=== PATIENT | female | born 1950 | race Caucasian/White ===

== ENCOUNTER → 2016-10-13 | Outpatient (CLI) | payer OTHER | END | disposition home or self-care (01) | LOC: C.PATHSPEC 09:52 | PROVIDERS: ATTEND Family Medicine | DX: L82.1 Other seborrheic keratosis (principal) ==

== ENCOUNTER → 2017-02-15 | Outpatient (CLI) | payer OTHER ==
[2017-02-15 19:09] LABS: RATIO 17.6 mcg/mg (0-30.0)
== END | disposition home or self-care (01) ==
LOC: C.LABMFLN 16:40
PROVIDERS: ATTEND Family Medicine
DX: E11.49 Type 2 diabetes mellitus with other diabetic neurological complication (principal)

== ENCOUNTER → 2017-09-20 | Outpatient (CLI) | payer OTHER ==
[2017-09-20 13:13] LABS: HEMOGLOBIN A1C 7.9 % (4.5-5.6)
[2017-09-20 13:21] LABS: ALBUMIN 3.7 gm/dl (3.4-5.0); ALT/SGPT 32 U/L (12-78); AST/SGOT 20 U/L (15-37); BLOOD UREA NITROGEN 15 mg/dl (7-18); CALCIUM 9.1 mg/dl (8.5-10.1); CARBON DIOXIDE 33 mmol/L (21-32); CREATININE 0.84 mg/dl (0.60-1.20); GLUCOSE 131 mg/dl (70-99); POTASSIUM 4.1 mmol/L (3.5-5.1); SODIUM 136 mmol/L (136-145)
[2017-09-20 13:24] LABS: ALKALINE PHOSPHATASE 87 U/L (45-117); CHOLESTEROL 126 mg/dl (0-200); LDL CHOLESTEROL CALCULATED 54 mg/dl; TOTAL PROTEIN 8.2 gm/dl (6.4-8.2)
== END | disposition home or self-care (01) ==
LOC: C.LABMFLN 08:26
PROVIDERS: ATTEND Family Medicine
DX: E78.00 Pure hypercholesterolemia, unspecified (principal); E11.49 Type 2 diabetes mellitus with other diabetic neurological complication

== ENCOUNTER → 2017-09-27 | Outpatient (CLI) | payer OTHER | END | disposition home or self-care (01) | LOC: C.LABMFLN 11:23 | PROVIDERS: ATTEND Family Medicine | DX: R39.15 Urgency of urination (principal) ==

== ENCOUNTER 2018-07-26 09:56 | Inpatient (IN) ==
--- NOTE | 2018-07-03 12:41 | Anesthesiology Consultation ---
Date of Service July 03, 2018 Assessment & Plan (1) Encounter for pre-operative examination: Chart Review Chart Review: Acceptable Risk for Surgery and Patient NOT seen in Pre Admission Testing Consults Requested none History Surgery Operation Date: 07/26/18 09:20 Proposed Procedures p Left Total Knee Arthroplasty - Dale Lofton MD Height/Weight Height: 5 ft 1 in Weight: 117.934 kg Allergies Allergy/AdvReac Type Severity Reaction Status Date / Time propoxyphene AdvReac Headache Verified 06/13/18 13:15 [From Darhemantt-N] Medications Home Medications Medication Instructions Recorded Confirmed Last Taken atorvastatin 40 mg PO HS 03/30/18 06/13/18 04/25/18 22:00 gabapentin 100 mg PO TID 03/30/18 06/13/18 04/26/18 04:30 glimepiride 4 mg PO QAM 03/30/18 06/13/18 04/26/18 04:30 hydrochlorothiazide 0.5 tab PO QAM 03/30/18 06/13/18 04/25/18 06:00 losartan 100 mg PO QAM 03/30/18 06/13/18 04/25/18 06:00 metformin 1,000 mg PO BID 03/30/18 06/13/18 04/25/18 18:00 metoprolol tartrate 1.5 tab PO BID 03/30/18 06/13/18 04/26/18 04:30 sertraline 100 mg PO BID 03/30/18 06/13/18 04/26/18 04:30 sitagliptin [Januvia] 100 mg PO QAM 03/30/18 06/13/18 04/25/18 06:00 acetaminophen [Acetaminophen Extra 500 mg PO Q6H PRN 06/13/18 06/13/18 Unknown Strength] aspirin [Aspirin Low Dose] 81 mg PO BID 06/13/18 06/13/18 Unknown diphenhydramine HCl 25 mg PO HS PRN 06/13/18 06/13/18 Unknown glimepiride 2 mg PO QDD 06/13/18 06/13/18 Unknown meloxicam 15 mg PO QDL 06/13/18 06/13/18 Unknown Past Medical History Medical History Hypersomnia Hypertension Hyperlipidemia Transient ischemic attack (TIA) 5+ YEARS AGO Depression Temporomandibular joint disorder NO LOCKING History of breast cancer LEFT S/P LUMPECTOMY; S/P RADIATION (~2013) Diabetes mellitus, type 2 NIDDM GERD (gastroesophageal reflux disease) CONTROLLED IBS (irritable bowel syndrome) Osteoarthritis Morbid obesity Tricuspid regurgitation MILD Carotid artery stenosis Environmental allergies Seasonal allergies Past Family History Family History Grandmother Family history of diabetes mellitus Grandmother Family history of diabetes mellitus Mother Uterine cancer Multiple myeloma Sister Family history of diabetes mellitus Father Family history of diabetes mellitus CAD (coronary artery disease), [place] coronary artery Son Family history of diabetes mellitus Past Surgical History Surgical History History of cardiac cath 2001= NO STENTS; Having "discomfort in chest" Seen by Dr Rodriguez who sent her to linux system administrator ([facility]). Who sent her to [facility] for cardiac cath History of colonoscopy History of endometrial biopsy Has had several procedures done History of tonsillectomy History of breast biopsy LEFT History of cholecystectomy History of dilatation and curettage History of ankle surgery LEFT History of carpal tunnel release B/L History of lumpectomy of left breast History of right common carotid artery stent placement Hx of total hysterectomy S/P total knee replacement Right. Done at 04/26/2018 at [facility]. Spinal/block/MAC. no issues. Social History Smoking Status: Never smoker Hx Alcohol Use: No Hx Substance Use: No substance use type: does not use Testing Electrocardiogram Date: 04/07/18 Findings: + NSR @ (68) Sinus rhythm with 1st degree A-V block with Premature atrial complexes Otherwise normal ECG No previous ECGs available Confirmed by OSWALD SHERMAN Chest X-Ray Date: 04/07/18 CLINICAL HISTORY: pat preoperative evaluation COMPARISON STUDY: No previous studies for comparison. FINDINGS: The bones soft tissues and hemidiaphragms are normal. The cardiomediastinal silhouette is normal. The lungs are clear. The pulmonary vasculature is normal. Calcified granuloma left lung base. Moderate degenerative change thoracic spine. IMPRESSION: No acute process. Laboratory Results Blood Type O Negative 06/29/18 10:41 Antibody Screen NEGATIVE 06/29/18 10:41 Laboratory Tests 06/29/18 06/29/18 06/29/18 10:41 10:41 10:41 WBC 7.77 Hgb 12.2 Hct 38.4 Plt Count 185 PT 10.2 INR 1.0 APTT 27.9 Sodium 138 Potassium 4.0 Chloride 101 Carbon Dioxide 31 BUN 23 H Creatinine 0.97 Glucose 121 H Hemoglobin A1c 06/29/18 10:41 WBC Hgb Hct Plt Count PT INR APTT Sodium Potassium Chloride Carbon Dioxide BUN Creatinine Glucose Hemoglobin A1c 6.5 H
--- NOTE | 2018-07-25 12:07 | History and Physical Report ---
DATE OF ADMISSION: 07/26/2018 CHIEF COMPLAINT: Chronic left knee pain and instability. HISTORY OF PRESENT ILLNESS: This is a 67-year-old female patient of Dr. Lofton'jesus manuel complaining of chronic left knee pain, longstanding, now progressively getting worse. The patient has failed conservative treatment including Tylenol, anti-inflammatories and the use of a cane. The patient has increased pain with weightbearing activities and her pain does interfere with her activities of daily living. PAST MEDICAL HISTORY: Heart murmur, hypertension, hypercholesterolemia, snoring, no diagnosis of sleep apnea, anxiety, history of a mini stroke, diabetes, anemia, acid reflux, obesity, breast cancer. SOCIAL HISTORY: Nonsmoker, nondrinker. PAST SURGICAL HISTORY: Lumpectomy, carpal tunnel x2, stent placement in her neck, right total knee replacement, gallbladder, and hysterectomy. REVIEW OF SYSTEMS: The patient complains of chronic left knee pain and instability. Otherwise, denies any shortness of breath, chest pain, nausea, vomiting or any other joint complaints. FAMILY HISTORY: Noncontributory. MEDICATIONS: Metformin 500 mg 3 times daily, Nexium 40 mg daily, losartan daily, hydrochlorothiazide 12.5 mg daily, sertraline 100 mg 1-1/2 tablets daily, metoprolol 25 mg daily, anastrozole 1 mg daily, aspirin 81 mg daily, docusate sodium 2 tablets daily, multivitamin daily. ALLERGIES: INCLUDE DARVOCET. PHYSICAL EXAMINATION: GENERAL: Well-developed, well-nourished, obese female with a BMI of 48. She is alert and oriented x3 and pleasant. HEENT: Normocephalic, atraumatic. Extraocular motions are intact. Pupils are equal, reactive to light. HEART: Regular rate and rhythm. No murmurs appreciated. LUNGS: Clear. ABDOMEN: Soft and nontender. Bowel sounds present. EXTREMITIES: Left knee range of motion of 0-95. She is morbidly obese. She has a mild effusion. She has a neutral alignment with crepitation with range of motion. She has 4/5 strength with pain. Neurologically and neurovascularly, she is intact in her left lower extremity. DIAGNOSES: Left knee end-stage osteoarthritis, history of a heart murmur, hypertension, hypercholesterolemia, snoring with no diagnosis of sleep apnea, anxiety, history of a mini stroke, diabetes mellitus, anemia, acid reflux, obesity and a history of breast cancer. PLAN: The patient was advised of her diagnosis. Indications, risks, benefits, and postop course have all been reviewed. The patient wished to proceed with a left total knee arthroplasty. Necessary consent forms, preoperative testing and clearances will be obtained.
[~2018-07-26 09:56] MED LIST: ACETAMINOPHEN 500 MG TAB PO SCH; BUPIVACAINE 0.5 % 5 MG/1 ML PF 10ML VIAL ONE; BUPIVACAINE/EPINEPHRINE 0.5% MPF 1:200,000 30 ML VIAL ONE; CEFAZOLIN 2000MG 2,000 MG/15 ML SYR IV SCH; CeleBREX 200 MG CAP PO SCH; DEXAMETHASONE SOD INJ 4 MG/ML VIAL ONE; FAMOTIDINE 20 MG TAB PO SCH; GABAPENTIN 300 MG PO SCH; LR 500ML BOLUS, THEN 15ML/HR IV SCH; METOCLOPRAMIDE HCL 10 MG TABLET PO SCH; ROPIVACAINE 0.5% HCL/PF 150 MG, BUPIVACAINE 0.5% MPF 30 ML, EPINEPHrine 30MG/30ML (OR U... INFIL SCH
[2018-07-26] MEDS ORDERED: fentaNYL citrate 100 MCG/2 ML VIAL ONE (11:44)
[2018-07-26] MEDS ORDERED: MIDAZOLAM HCL 1 MG/ML 2ML VIAL ONE (11:44)
[2018-07-26] MEDS ORDERED: LACTATED RINGER'S 1,000 ML IV SCH (13:45)
--- NOTE | 2018-07-26 14:12 | History & Physical Bridge Note ---
Date of Service July 26, 2018 History & Physical Bridge Note I have examined the patient, reviewed the History & Physical and in the interval since the performance of the History & Physical I have noted the following changes of clinical significance: no changes noted
[2018-07-26] MEDS ORDERED: ORTHO JOINT ANESTHETIC ONE (14:21)
[2018-07-26] MEDS ORDERED: BACITRACIN INJ 50,000 UNIT VIAL ONE (14:21)
[2018-07-26] MEDS ORDERED: POVIDONE-IODINE OP SOLN 30 ML BTL ONE (14:21)
[2018-07-26] MEDS ORDERED: KETAMINE HCL INJ 50 MG/ML 10 ML VIAL ONE (14:29)
[2018-07-26] MEDS ORDERED: ATROPINE SULFATE 0.1 MG/ML 10ML SYR IV PRN (14:41)
[2018-07-26] MEDS ORDERED: fentaNYL citrate 100 MCG/2 ML VIAL IV PRN (14:41)
[2018-07-26] MEDS ORDERED: ePHEDrine sulfate 50 MG/ML AMP IV PRN (14:41)
[2018-07-26] MEDS ORDERED: ONDANSETRON INJ 2 MG/ML 2 ML VIAL IV PRN ×2 (14:41→17:51)
[2018-07-26] MEDS ORDERED: LIDOCAINE HCL 2% 2 ML VIAL/AMP(20MG/ML) INFIL ONE (14:49)
[2018-07-26] MEDS ORDERED: ONDANSETRON INJ 2 MG/ML 2 ML VIAL ONE (14:49)
[2018-07-26] MEDS ORDERED: PROPOFOL IV EMULSION 10 MG/ML 20 ML VIAL IV ONE (14:49)
[2018-07-26] MEDS ORDERED: DEXAMETHASONE SOD INJ 4 MG/ML VIAL ONE (14:49)
[2018-07-26] MEDS ORDERED: GLYCOPYRROLATE 0.2 MG/ML VIAL ONE (14:49)
--- NOTE | 2018-07-26 16:16 | Operative Report ---
Post Operative Report Pre & Post Diagnosis Operation Date: 07/26/18 13:30 Pre-Op Diagnosis: LEFT KNEE OSTEOARTHRITIS, morbid obesity BMI 49.5 Post-Op Diagnosis: LEFT KNEE OSTEOARTHRITIS, morbid obesity BMI 49.5 Procedure Operation Date: 07/26/18 13:30 Actual Procedures p Left Total Knee Arthroplasty, increased difficulty due to morbid obesity BMI 49.5, application superficial wound VAC (Left) - Dale Lofton MD Surgeon Dale Lfoton MD Crisis Mental Health Therapist Jesús FARLEY Estimated Blood Loss 5 Findings See Below Obesity of the leg with tricompartmental DJD [id number] patellofemoral and medial compartment varus knee. Specimens Bone cuts Drains 2 Hemovac Anesthesia Type Spinal MAC Complications none Disposition Accompanied Patient To Recovery: No Disposition: Recovery Room Indications 67-year-old female who had bilateral knee osteoarthritis with successful right knee replacement last year. Patient did well with that procedure. I still want to proceed with left knee replacement. She does have comorbidity of morbid obesity diabetes history of TIA Description of Procedure Patient taken to the operating room the size under spinal regional block anesthesia. Patient was placed supine on the operating table. A pneumatic tourniquet was placed about the left obese upper thigh. The left lower extremity was prepped and draped in sterile fashion. Knee exam demonstrated obese knee full distention flexion to 120 degrees no particular instability. The leg was elevated exsanguinated with an Esmarch bandage and pneumatic tourniquet was raised to 350 millimeters of mercury. Skin incised sharply in longitudinal fashion. Subcutaneous flaps elevated. Incision was made through the medial retinaculum extending up in the mid third of the quadriceps tendon and down to the medial tibial tubercle. Intra-articular findings demonstrated tricompartmental degenerative arthritis [id number] medial compartment and patellofemoral joint tricompartmental large osteophytes with a varus knee.. The [employer] triGlossyBoxn total knee arthroplasty system was used. To expose the knee the infrapatellar fat pad was resected. The meniscal remnants and cruciate ligaments were resected. The anterior fat pad over the femur in the area of the anterior flange of the femoral component was resected. Lateral synovial bands release. The femur was exposed. An intramedullary drill hole was made into the canal. A guidewire was placed. Distal femoral cutting guide was adjusted to resect a 5 degree valgus cut with 8 millimeters distal femur resected. The knee was extended and a subperiosteal peel lateral release was performed around the patella. Patella width was measured and width was reproduced using a freehand cut technique and a 31 patella component. The 3 drill holes were made and the excess lateral facet was beveled off to prevent any impingement. Attention was taken back to the femur which was exposed with retractors and the femoral sizing guide was pinned in position. The drill holes were placed in 3 of external rotation to match epicondylar axis. Femur sized for a 4 component. The 4-in-1 cutting block was placed and then the anterior posterior and chamfer cuts are made. The tibia was then subluxed. The external tibial cutting guide was just to make a perpendicular cut to the long axis of the tibia below the most deficient bone loss side. A lamina black top spreader machine operator was used and the flexion extension gaps were balanced. All posterior osteophytes removed. All meniscal remnants were resected. The tibia exposed and the trial tibial component size 3 was externally rotated in line with the tibial tubercle and pinned in position. The punch for stem was used. The notch cutting device was centered appropriately and the femoral notch cut was made. The femoral trial was inserted. Trial tibial inserts were placed and size 9 gave balanced ligaments through flexion and extension. Patella tracking was assessed. The patella tracked with lateral liftoff and tilt so I went ahead and did a formal lateral release leaving the synovium intact and patella tracked centrally. The trial components were then removed and the orthomix anesthetic cocktail was injected per protocol. The knee was then copiously irrigated with pulsatile lavage antibiotic solution. Final components were then cemented with Simplex cement. Final components were [employer] triathlon left size 4 posterior stabilized femur size 3 primary tibial baseplate size 3 x 9 mm posterior stabilized X3 polyethylene tibial insert X3 31 x 9 mm symmetrical patella. While the cement cured the Betadine soak was used per protocol. After cement cured further pulsatile lavage irrigation performed and 2 Hemovac drains were brought out laterally. The quadriceps tendon and medial retinaculum were closed with figure of 8 #1 Vicryl sutures. The knee was taken through full range of motion and the repair was secure. The subcutaneous tisssues were closed with large #2 Vicryl sutures to close the deep fat, 2-0 Vicryl sutures for more superficial fat. Skin was closed with debora. A superficial wound VAC was then applied. Jesús FARLEY was my physician family medicine physician assistant who assisted in patient positioning prepping and draping,leg positioning ,soft tissue retraction and instrument management and participated in the closing applied the superficial wound VAC and will participate in postoperative care of the patient. The patient tolerated the procedure well. I attest to the content of the Intraoperative Record and any orders documented therein. Any exceptions are noted below.
--- NOTE | 2018-07-26 17:17 | XRay Report ---
TWO VIEWS LEFT KNEE CLINICAL HISTORY: Postoperative examination. FINDINGS: AP and crosstable lateral portable views of the left knee are obtained. A left knee arthrop lasty is in near anatomic alignment. There has been undersurface remodeling of the patella. No acute fracture is seen. There are expected postoperative changes around the knee including skin clips, a larsen rgical drain, soft tissue edema, and subcutaneous gas. IMPRESSION: Expected postoperative changes status post left knee arthroplasty. No acute fracture is s een. Electronically signed by: Wili Rivas M.D. 07/26/2018 5:16 PM
[2018-07-26] MEDS ORDERED: MAGNESIUM HYDROXIDE SUSP 30 ML UDC PO PRN (17:51)
[2018-07-26] MEDS ORDERED: NALOXONE HCL 0.4 MG/1 ML VIAL/CARP IV PRN (17:51)
[2018-07-26] MEDS ORDERED: HYDROmorphone INJ 0.5 MG/0.5 ML SYR IV PRN (17:51)
[2018-07-26] MEDS ORDERED: METOCLOPRAMIDE HCL INJ 5 MG/ML 2 ML VIAL IV PRN (17:51)
[2018-07-26] MEDS ORDERED: BISACODYL 10 MG SUPP PR PRN (17:51)
--- NOTE | 2018-07-26 18:39 | Anesthesiology Progress Note ---
Date of Service July 26, 2018 Anesthesia Post Procedure Vital Signs Vital Signs: Temp Pulse Pulse Pulse Resp BP Pulse Ox 07/26/18 17:45 36.6 C 76 12 113/66 07/26/18 17:30 37.4 C 73 20 116/59 L 94 07/26/18 17:15 74 18 111/63 93 07/26/18 17:05 72 20 111/55 L 94 07/26/18 16:55 73 20 106/56 L 97 07/26/18 16:47 38.0 C H 77 16 105/60 98 07/26/18 10:35 36.4 C L 63 20 149/92 H 95 Notes Mental Status: alert / awake / arousable and participated in evaluation Patient Amnestic to Procedure: Yes Nausea / Vomiting: adequately controlled Pain: adequately controlled Airway Patency, RR, SpO2: stable & adequate BP & HR: stable & adequate Hydration State: stable & adequate Neuraxial Anesthesia: was administered and sensory block is resolving Anesthetic Complications: no major complications apparent
[2018-07-26] MEDS ORDERED: GLUCAGON FOR INJ 1 MG VIAL SQ PRN (20:00)
[2018-07-26] MEDS ORDERED: CARBOHYDRATES FOR HYPOGLYCEMIA PO PRN (20:00)
[2018-07-26] MEDS ORDERED: DEXTROSE 50% 50 ML SYRINGE IV PRN (20:00)
[2018-07-26] MEDS ORDERED: GLUCOSE 10 TABS/TUBE PO PRN (20:00)
[2018-07-26] MEDS ORDERED: GLUCOSE 40% GEL 15 GM TUBE PO PRN (20:00)
[2018-07-26] MEDS: DOCUSATE SODIUM 100 MG CAP PO SCH (21:08)
[2018-07-26] MEDS: SERTRALINE HCL 100 MG TABLET PO SCH (21:08)
[2018-07-26] MEDS: FERROUS GLUCONATE 324 MG TAB PO SCH (21:09)
[2018-07-26] MEDS: ATORVASTATIN 40 MG TAB PO SCH (21:09)
[2018-07-26] MEDS: CEFAZOLIN 2000MG 2,000 MG/15 ML SYR IV SCH (21:09)
[2018-07-26] MEDS: ACETAMINOPHEN 500 MG TAB PO SCH (21:09)
[2018-07-26] MEDS: ASPIRIN 81 MG ECTAB PO SCH (21:09)
[2018-07-26] MEDS: GABAPENTIN 100 MG CAP PO SCH (21:09)
[2018-07-26] MEDS: SENNA 8.6 MG TAB PO SCH (21:09)
[2018-07-26] MEDS: METOPROLOL TARTRATE 25 MG TAB PO SCH (21:11)
[2018-07-26] MEDS: INSULIN ASPART 100 UNITS/ML 3 ML PEN SC SCH (21:46)
[2018-07-27] MEDS: SODIUM CHLORIDE 0.9% 1000ML 1,000 ML IV SCH ×2 (00:24→06:21)
[2018-07-27] MEDS: CEFAZOLIN 2000MG 2,000 MG/15 ML SYR IV SCH (06:20)
[2018-07-27] MEDS: ACETAMINOPHEN 500 MG TAB PO SCH ×3 (06:20→21:46)
[2018-07-27 07:39] LABS: Hematocrit (blood only) 30.5 % (37-47); Hemoglobin 9.5 g/dL (12.0-16.0); Mean Corpuscular Hgb Conc 31.1 g/dL (32-36); Mean Corpuscular Volume 82.2 fL (80-100); Mean Platelet Volume 9.7 fL (7.4-10.4); Platelet Count 141 K/uL (130-400); Red Blood Count 3.71 M/uL (4.2-5.4); White Blood Count 10.27 K/uL (4.8-10.8)
[2018-07-27] MEDS ORDERED: METFORMIN HCL 500 MG TAB PO SCH (08:00)
[2018-07-27] MEDS ORDERED: GLIMEPIRIDE 2 MG TAB PO SCH (08:00)
[2018-07-27 08:13] LABS: BUN Creatinine Ratio 20.9 (10-20); Calcium 8.2 mg/dl (8.5-10.1); Creatinine Clr Calc Pharmacy 65.4 ml/min; Est GFR (African American) 67.9; Est GFR (Non-African American) 58.6; Potassium 4.3 mmol/L (3.5-5.1)
[2018-07-27] MEDS: GLIMEPIRIDE 2 MG TAB PO SCH (08:32)
[2018-07-27] MEDS: INSULIN ASPART 100 UNITS/ML 3 ML PEN SC SCH ×4 (08:34→21:16)
[2018-07-27] MEDS: DOCUSATE SODIUM 100 MG CAP PO SCH ×2 (08:36→21:43)
[2018-07-27] MEDS: ASPIRIN 81 MG ECTAB PO SCH ×2 (08:36→21:45)
[2018-07-27] MEDS: FERROUS GLUCONATE 324 MG TAB PO SCH ×2 (08:36→18:00)
[2018-07-27] MEDS: SITAGLIPTIN PHOSPHATE 100 MG TAB PO SCH (08:36)
--- NOTE | 2018-07-27 08:36 | Orthopedic Progress Note ---
Date of Service July 27, 2018 Assessment & Plan (1) Left knee DJD: Begin PT and OT protocols. Weightbearing as tolerated. Continue DVT prophylaxis with aspirin twice daily, ROHINI herrera, DELIAs. Pain management as written. DC planning-patient is planning on going to [facility] if approved Subjective Patient is postop day 1 status post left total knee arthroplasty. She is currently sitting up in her chair reading a book. She has no complaints this morning. Pain is controlled. She denies shortness of breath, chest pain, lightheadedness. Physical Exam Vital Signs (Past 24 Hours): Last Vital Signs Temp 36.5 C 07/27/18 07:02 Pulse 58 L 07/27/18 07:02 Resp 17 07/27/18 07:02 BP 94/61 L 07/27/18 07:02 Pulse Ox 99 07/27/18 07:02 Physical Exam: Dressings are clean dry and intact.Prevena reservoir is empty. Calves are soft and nontender. Neurovascular is intact. Toes are mobile. Results & Data Laboratory Results 07/27/18 07/27/18 07/26/18 Range/Units 07:18 07:18 16:53 WBC 10.27 (4.8-10.8) K/uL RBC 3.71 L (4.2-5.4) M/uL Hgb 9.5 L (12.0-16.0) g/dL Hct 30.5 L (37-47) % MCV 82.2 (80-100) fL MCH 25.6 (25-34) pg MCHC 31.1 L (32-36) g/dL RDW Std Deviation 45.0 (36.4-46.3) fL RDW Coeff of Hunter 15.0 H (11.5-14.5) % Plt Count 141 (130-400) K/uL MPV 9.7 (7.4-10.4) fL Sodium 137 (136-145) mmol/L Potassium 4.3 (3.5-5.1) mmol/L Chloride 102 (98-107) mmol/L Carbon Dioxide 28 (21-32) mmol/L Anion Gap 7.0 (3-11) BUN 21 H (7-18) mg/dl Creatinine 0.99 (0.6-1.2) mg/dl Est Cr Clr Drug Dosing 65.4 ml/min Est GFR ( Amer) 67.9 Est GFR (Non-Af Amer) 58.6 BUN/Creatinine Ratio 20.9 H (10-20) Glucose 179 H (70-99) mg/dl POC Glucose 143 H (70-99) Calcium 8.2 L (8.5-10.1) mg/dl 07/26/18 Range/Units 10:22 WBC (4.8-10.8) K/uL RBC (4.2-5.4) M/uL Hgb (12.0-16.0) g/dL Hct (37-47) % MCV (80-100) fL MCH (25-34) pg MCHC (32-36) g/dL RDW Std Deviation (36.4-46.3) fL RDW Coeff of Hunter (11.5-14.5) % Plt Count (130-400) K/uL MPV (7.4-10.4) fL Sodium (136-145) mmol/L Potassium (3.5-5.1) mmol/L Chloride (98-107) mmol/L Carbon Dioxide (21-32) mmol/L Anion Gap (3-11) BUN (7-18) mg/dl Creatinine (0.6-1.2) mg/dl Est Cr Clr Drug Dosing ml/min Est GFR ( Amer) Est GFR (Non-Af Amer) BUN/Creatinine Ratio (10-20) Glucose (70-99) mg/dl POC Glucose 153 H (70-99) Calcium (8.5-10.1) mg/dl
[2018-07-27] MEDS: MULTIVITAMIN TAB PO SCH (08:37)
[2018-07-27] MEDS: GABAPENTIN 100 MG CAP PO SCH ×3 (08:37→21:44)
[2018-07-27] MEDS: METOPROLOL TARTRATE 25 MG TAB PO SCH ×2 (08:41→21:46)
[2018-07-27] MEDS: LOSARTAN POTASSIUM 50 MG TAB PO SCH (08:41)
--- NOTE | 2018-07-27 09:31 | Anesthesiology Progress Note ---
Date of Service July 27, 2018 Anesthesia Post Procedure Vital Signs Vital Signs: Temp Pulse Pulse Pulse Pulse Pulse Resp 07/27/18 08:40 65 07/27/18 07:02 36.5 C 58 L 17 07/27/18 04:20 36.4 C L 61 16 07/26/18 22:50 36.6 C 84 16 07/26/18 20:58 84 07/26/18 20:45 36.6 C 82 20 07/26/18 19:45 36.6 C 83 20 07/26/18 18:45 75 20 07/26/18 18:32 36.9 C 84 20 07/26/18 17:45 36.6 C 76 12 07/26/18 17:30 37.4 C 73 20 07/26/18 17:15 74 18 07/26/18 17:05 72 20 07/26/18 16:55 73 20 07/26/18 16:47 38.0 C H 77 16 07/26/18 10:35 36.4 C L 63 20 BP BP BP Pulse Ox 07/27/18 08:40 117/75 07/27/18 07:02 94/61 L 99 07/27/18 04:20 104/61 99 07/26/18 22:50 96/55 L 95 07/26/18 20:58 96/57 L 07/26/18 20:45 96/57 L 97 07/26/18 19:45 99/63 L 96 07/26/18 18:45 104/70 96 07/26/18 18:32 116/73 97 07/26/18 17:45 113/66 07/26/18 17:30 116/59 L 94 07/26/18 17:15 111/63 93 07/26/18 17:05 111/55 L 94 07/26/18 16:55 106/56 L 97 07/26/18 16:47 105/60 98 07/26/18 10:35 149/92 H 95 Pain Intensity Left Knee: Pain Intensity: 5 Notes Mental Status: alert / awake / arousable and participated in evaluation Patient Amnestic to Procedure: Yes Nausea / Vomiting: adequately controlled Pain: adequately controlled Airway Patency, RR, SpO2: stable & adequate Hydration State: stable & adequate Neuraxial Anesthesia: was administered and sensory block is resolving Anesthetic Complications: no major complications apparent and Pt Satisfied with anesthetic care
--- NOTE | 2018-07-27 10:39 | Family Medicine Consultation ---
Date of Consultation July 27, 2018 Assessment & Plan (1) Status post total knee replacement, left: post op day #1 PT/OT protocols. Weightbearing as tolerated. DC planning-referral placed to [facility] (formerly [facility]) (2) Left knee DJD: treated with left total knee arthoplasty on 07/26/2018 (3) Diabetes mellitus, type 2: Review of previous records A1C 6.5 on 06/29/2018 within goal. This morning glucose 179 in post-op setting day #1 Continue with Januvia 100mg PO Continue with Glimepiride 2mg PO Hold home med Metformin 1,000mg BID Continue with Novolog -Goal Range 100-150 -Correcton factor 30 -Insulin Carb ratio 1:10 (4) Depression: continue with Zoloft 200mg PO daily (5) Hyperlipidemia: Continue with Lipitor 40mg BID (6) DVT prophylaxis: DVT prophylaxis SCDs, ASA 81mg BID Supervising Physician Co-Signing Physician Notes I have seen and examined the patient independantly from the resident. I discussed the plan of care with the resident and agree with the following summary/exceptions: 67yo F w/ hx of DM who presents as medical consult after left TKA on 07/[address] Lofton. Today, she is in good spirits. No pain in the knee. Reports no fevers/chills, chest pain, shortness of breath, abdominal pain, nausea, or vomiting. 1) S/p left TKA - Post-operative management per primary team 2) DM2 - Continue home Januvia and glimepiride; hold metformin. Sliding scale insulin. 3) Depression - Continue home Zoloft History of Present Illness Reason for Consultation: Medical management Requesting Physician: Dale Lofton MD Attending Physician: Dale Lofton MD History of Present Illness Veena Avendano is a 67 year old female with a history of heart murmur, HTN, hyperlipidemia, TIA, DM2, anemia, that presented for left total knee arthroplasty secondary to DJD. She is post-op day #1. No complications noted during procedure. She has no chest pain, shortness of breath, nausea, vomiting, diarrhea. She reports that she plans to go to [facility] for rehab upon discharge. Allergies Allergy/AdvReac Type Severity Reaction Status Date / Time propoxyphene AdvReac Intermediate Headache Verified 07/26/18 10:35 [From [facility]] Home Medications Home Medications Medication Instructions Recorded Confirmed Type Januvia 100 mg PO QAM 03/30/18 07/26/18 History atorvastatin 40 mg PO HS 03/30/18 07/26/18 History gabapentin 100 mg PO TID 03/30/18 07/26/18 History hydrochlorothiazide 0.5 tab PO QAM 03/30/18 07/26/18 History losartan 100 mg PO QAM 03/30/18 07/26/18 History metformin 1,000 mg PO BID 03/30/18 07/26/18 History metoprolol tartrate 1.5 tab PO BID 03/30/18 07/26/18 History sertraline 200 mg PO HS 03/30/18 07/26/18 History acetaminophen [Acetaminophen Extra 500 mg PO Q6H PRN 06/13/18 07/26/18 History Strength] aspirin [Aspirin Low Dose] 81 mg PO BID 06/13/18 07/26/18 History diphenhydramine HCl 25 mg PO HS PRN 06/13/18 07/26/18 History glimepiride 2 mg PO BID 06/13/18 07/26/18 History meloxicam 15 mg PO QDL 06/13/18 07/26/18 History acetaminophen [Pain Reliever] 1,000 mg PO Q8 14 Days #84 tab 07/27/18 Rx aspirin [Ecotrin Low Strength] 81 mg PO BID 30 Days #60 tab 07/27/18 Rx cefadroxil 500 mg PO BID #14 cap 07/27/18 Rx docusate sodium 100 mg PO BID #20 cap 07/27/18 Rx oxycodone 5 mg PO Q4H PRN #30 tab 07/27/18 Rx Patient History Family History Grandmother Family history of diabetes mellitus Grandmother Family history of diabetes mellitus Mother Uterine cancer Multiple myeloma Sister Family history of diabetes mellitus Father Family history of diabetes mellitus CAD (coronary artery disease), [place] coronary artery Son Family history of diabetes mellitus Social History Communication Ability: Effective Beliefs That Will Affect Care: None marital status: Current Living Situation: Family current occupational status: retired current occupation: Worked as a senior pharmacy technician at an [employer] Other Information That Helps Us Care for You: No Feels Safe at Home: Yes Safety Concerns: Feels Safe At This Time Smoking Status: Never smoker Hx Alcohol Use: No Hx Substance Use: No Physical Exam Vital Signs (Past 24 Hours): Last Vital Signs Temp 36.5 C 07/27/18 07:02 Pulse 65 07/27/18 08:40 Resp 17 07/27/18 07:02 BP 117/75 07/27/18 08:40 Pulse Ox 99 07/27/18 07:02 Constitutional: WD/WN, vitals as above + obese and cooperative Eyes: + anicteric sclerae and EOM intact bilaterally Neck: normal visual inspection and trachea midline Respiratory: normal respiratory effort, lungs clear to auscultation Cardiovascular: Rate/Rhythm: regular rate and regular rhythm Musculoskeletal: old midline surgical scar to right knee consistent with previous total knee arthoplasty. Left knee with bandage in place. No sensory or motor loss in left foot. Left food vascular intact. Skin: no rashes, warm and dry Neurologic: moves all extremities and awake Psychiatric: A+Ox3, euthymic affect Results & Data Laboratory Results Laboratory Results - last 24 hr 07/26/18 07/27/18 07/27/18 16:53 07:18 07:18 WBC 10.27 RBC 3.71 L Hgb 9.5 L Hct 30.5 L MCV 82.2 MCH 25.6 MCHC 31.1 L RDW Std Deviation 45.0 RDW Coeff of Hunter 15.0 H Plt Count 141 MPV 9.7 Sodium 137 Potassium 4.3 Chloride 102 Carbon Dioxide 28 Anion Gap 7.0 BUN 21 H Creatinine 0.99 Est Cr Clr Drug Dosing 65.4 Est GFR ( Amer) 67.9 Est GFR (Non-Af Amer) 58.6 BUN/Creatinine Ratio 20.9 H Glucose 179 H POC Glucose 143 H Calcium 8.2 L 07/27/18 07/27/18 08:29 11:58 WBC RBC Hgb Hct MCV MCH MCHC RDW Std Deviation RDW Coeff of Hunter Plt Count MPV Sodium Potassium Chloride Carbon Dioxide Anion Gap BUN Creatinine Est Cr Clr Drug Dosing Est GFR ( Amer) Est GFR (Non-Af Amer) BUN/Creatinine Ratio Glucose POC Glucose 187 H 170 H Calcium (1) Diabetes mellitus, type 2 Diabetes mellitus complication status: without complication Diabetes mellitus fpc insulin use: without intermodal customer service use Qualified Code(s): E11.9 - Type 2 diabetes mellitus without complications (2) Depression Active/Remission status: in full remission Depression Type: major depressive disorder Major depression recurrence: unspecified whether recurrent Qualified Code(s): F32.5 - Major depressive disorder, single episode, in full remission (3) Hyperlipidemia Hyperlipidemia type: unspecified Qualified Code(s): E78.5 - Hyperlipidemia, unspecified
[2018-07-27] MEDS: OXYCODONE HCL IR 5 MG TAB (IMMEDIATE RELEASE) PO PRN ×2 (12:03→16:50)
[2018-07-27] MEDS: ATORVASTATIN 40 MG TAB PO SCH (21:43)
[2018-07-27] MEDS: SERTRALINE HCL 100 MG TABLET PO SCH (21:43)
[2018-07-27] MEDS: SENNA 8.6 MG TAB PO SCH (21:45)
[2018-07-28] MEDS: ACETAMINOPHEN 500 MG TAB PO SCH ×2 (05:47→13:48)
[2018-07-28] MEDS: METOPROLOL TARTRATE 25 MG TAB PO SCH (08:32)
[2018-07-28] MEDS: FERROUS GLUCONATE 324 MG TAB PO SCH (08:32)
[2018-07-28] MEDS: GLIMEPIRIDE 2 MG TAB PO SCH (08:32)
[2018-07-28] MEDS: MULTIVITAMIN TAB PO SCH (08:33)
[2018-07-28] MEDS: ASPIRIN 81 MG ECTAB PO SCH (08:33)
[2018-07-28] MEDS: LOSARTAN POTASSIUM 50 MG TAB PO SCH (08:33)
[2018-07-28] MEDS: SITAGLIPTIN PHOSPHATE 100 MG TAB PO SCH (08:33)
[2018-07-28] MEDS: GABAPENTIN 100 MG CAP PO SCH ×2 (08:33→14:46)
[2018-07-28] MEDS: DOCUSATE SODIUM 100 MG CAP PO SCH (08:34)
[2018-07-28] MEDS: INSULIN ASPART 100 UNITS/ML 3 ML PEN SC SCH ×2 (08:35→13:47)
[2018-07-28] MEDS ORDERED: KETOROLAC TROMETHAMINE 15 MG/ML VIAL IV STA (09:39)
[2018-07-28 09:43] LABS: Hematocrit (blood only) 31.1 % (37-47); Hemoglobin 9.7 g/dL (12.0-16.0); Mean Corpuscular Hgb Conc 31.2 g/dL (32-36); Mean Corpuscular Volume 82.5 fL (80-100); Mean Platelet Volume 9.9 fL (7.4-10.4); Platelet Count 137 K/uL (130-400); RDW Coefficient of Variation 15.4 % (11.5-14.5); Red Blood Count 3.77 M/uL (4.2-5.4); White Blood Count 7.07 K/uL (4.8-10.8)
[2018-07-28 10:14] LABS: BUN Creatinine Ratio 25.1 (10-20); Calcium 8.7 mg/dl (8.5-10.1); Creatinine Clr Calc Pharmacy 61.1 ml/min; Est GFR (African American) 62.5; Est GFR (Non-African American) 53.9
--- NOTE | 2018-07-28 10:32 | Progress Note ---
DATE: 07/28/2018 SUBJECTIVE: The patient is postop day 2 status post left total knee arthroplasty. She currently is not feeling well due to pain control issues. She revealed to me that she was not taking her oral narcotic medication regularly. She states that she does not normally like to take medications and we discussed that she was going to have to start taking her pain pills regularly due to the type of surgery she has had. We discussed that acetaminophen alone was not going to probably help her pain control and that she would need to take her oxycodone regularly every 4-6 hours to help control her pain. The patient understood and agrees to start taking her pain medications regularly. She denies any shortness of breath, chest pain, or lightheadedness and she has no other complaints at this time. OBJECTIVE: Prevena dressing is clean, dry and intact and has no overt drainage noted. Calves were soft, nontender. Neurovascularly intact. Toes were mobile. There was no erythema or overt swelling noted. ASSESSMENT: Postop day 2 status post right total knee arthroplasty. Continue PT and OT protocols. Continue DVT prophylaxis with b.i.d. aspirin, SCDs and ROHINI hose. Continue current pain medications as they are; however, the patient agrees to start taking her oxycodone regularly and this will be discussed with nursing as well to make sure she is maintaining adequate pain control. One-time dose of Toradol will be added to help alleviate some of the discomfort she is having. If pain is not controlled with her taking the oxycodone regularly, consider adding MS Contin b.i.d. Discharge planning: Currently, the plans are for [facility] rehab facility if authorized. Of note, hemoglobin is remaining stable at 9.7. Current temperatures are pending, but yesterday's creatinine was 0.99. MTDD
--- NOTE | 2018-07-28 10:46 | Family Medicine Progress Note ---
Date of Service July 28, 2018 Assessment & Plan (1) Status post total knee replacement, left: post op day #2 Continue with PT/OT protocols. DC planning-referral placed to [facility] (formerly [facility]) Hgb is stable this morning at 9.7 and improved from yesterday's value of 9.5. Patient is doing well without any concerns from medical management stand point. We will sign off on care. Happy to provide further medical management as requested. Thank you for allowing us to assist in the care of Veena. (2) Left knee DJD: treated with left total knee arthoplasty on 07/26/2018 (3) Diabetes mellitus, type 2: Review of previous records A1C 6.5 on 06/29/2018 within goal. This morning glucose 172, but was at 9am after breakfast, POC glucose within the past 12 hours have been in goal range. Noted that 11 total units of Novolog were required yesterday per protocol. Continue with Januvia 100mg PO Continue with Glimepiride 2mg PO Hold home med Metformin 1,000mg BID Continue with Novolog -Goal Range 100-150 -Correcton factor 30 -Insulin Carb ratio 1:10 She can continue with outpatient diabetic regimen on discharge as previous A1C was at goal. (4) Depression: continue with Zoloft 200mg PO daily (5) Hyperlipidemia: Continue with Lipitor 40mg BID (6) DVT prophylaxis: DVT prophylaxis SCDs, ASA 81mg BID Supervising Physician Co-Signing Physician Notes I have seen and examined the patient independently from the resident. I discussed the plan of care with the resident and agree with the following summary/exceptions: 67yo F w/ hx of DM who presents as medical consult after left TKA on 07/[address] Lofton. Today, she is in good spirits. Some knee pain, but had not been taking her PRN pain meds. Reports no fevers/chills, chest pain, shortness of breath, abdominal pain, nausea, or vomiting. May go home today. 1) S/p left TKA - Post-operative management per primary team 2) DM2 - Continue home Januvia and glimepiride; hold metformin. Sliding scale insulin. Sugars in good range. 3) Depression - Continue home Zoloft Subjective Veena reports no acute events overnight. She has no chest pain, shortness of breath, nausea, vomiting, diarrhea, fever or chills. She is working with Physical Therapy. Physical Exam Vital Signs (Past 24 Hours): Last Vital Signs Temp 36.4 C L 07/28/18 07:57 Pulse 67 07/28/18 07:57 Resp 18 07/28/18 07:57 BP 113/69 07/28/18 07:57 Pulse Ox 92 07/28/18 07:57 Constitutional: WD/WN, vitals as above + obese and cooperative Eyes: + anicteric sclerae and EOM intact bilaterally Neck: normal visual inspection and trachea midline Respiratory: normal respiratory effort, lungs clear to auscultation Cardiovascular: Rate/Rhythm: regular rate and regular rhythm Musculoskeletal: LLE neuro-vascular intact, no sensory deficit or motor deficit in left foot. Left knee bandage with drain in place, intact, dry. Skin: no rashes, warm and dry Neurologic: moves all extremities and awake Psychiatric: A+Ox3, euthymic affect Results & Data Laboratory Results Laboratory Results - last 24 hr 07/27/18 07/27/18 07/27/18 11:58 17:14 20:38 WBC RBC Hgb Hct MCV MCH MCHC RDW Std Deviation RDW Coeff of Hunter Plt Count MPV Sodium Potassium Chloride Carbon Dioxide Anion Gap BUN Creatinine Est Cr Clr Drug Dosing Est GFR ( Amer) Est GFR (Non-Af Amer) BUN/Creatinine Ratio Glucose POC Glucose 170 H 104 H 114 H Calcium 07/28/18 07/28/18 07/28/18 08:00 09:33 09:33 WBC 7.07 RBC 3.77 L Hgb 9.7 L Hct 31.1 L MCV 82.5 MCH 25.7 MCHC 31.2 L RDW Std Deviation 46.0 RDW Coeff of Hunter 15.4 H Plt Count 137 MPV 9.9 Sodium 136 Potassium 4.0 Chloride 100 Carbon Dioxide 30 Anion Gap 7.0 BUN 27 H Creatinine 1.06 Est Cr Clr Drug Dosing 61.1 Est GFR ( Amer) 62.5 Est GFR (Non-Af Amer) 53.9 BUN/Creatinine Ratio 25.1 H Glucose 172 H POC Glucose 122 H Calcium 8.7 Medications Administered Acetaminophen (Tylenol) 1,000 mg PO Q8 [facility] Stop: 08/25/18 21:59 Last Admin: 07/28/18 05:47 Dose: 1,000 mg Documented by: [id number] Admin: 07/27/18 21:46 Dose: 1,000 mg Documented by: [id number] Admin: 07/27/18 13:36 Dose: 1,000 mg Documented by: [id number] Admin: 07/27/18 06:20 Dose: 1,000 mg Documented by: [id number] Admin: 07/26/18 21:09 Dose: 1,000 mg Documented by: [id number] Aspirin (Ecotrin Ectab) 81 mg PO BID [facility] Stop: 08/25/18 20:59 Last Admin: 07/28/18 08:33 Dose: 81 mg Documented by: [id number] Admin: 07/27/18 21:45 Dose: 81 mg Documented by: [id number] Admin: 07/27/18 08:36 Dose: 81 mg Documented by: [id number] Admin: 07/26/18 21:09 Dose: 81 mg Documented by: [id number] Atorvastatin Calcium (Lipitor) 40 mg PO HS [facility] Stop: 08/25/18 20:59 Last Admin: 07/27/18 21:43 Dose: 40 mg Documented by: [id number] Admin: 07/26/18 21:09 Dose: 40 mg Documented by: [id number] Docusate Sodium (Colace) 100 mg PO BID [facility] Stop: 08/25/18 20:59 Last Admin: 07/28/18 08:34 Dose: 100 mg Documented by: [id number] Admin: 07/27/18 21:43 Dose: 100 mg Documented by: [id number] Admin: 07/27/18 08:36 Dose: 100 mg Documented by: [id number] Admin: 07/26/18 21:08 Dose: 100 mg Documented by: [id number] Ferrous Gluconate (Ferrous Gluconate) 324 mg PO BIDM [facility] Stop: 08/25/18 18:29 Last Admin: 07/28/18 08:32 Dose: 324 mg Documented by: [id number] Admin: 07/27/18 18:00 Dose: 324 mg Documented by: [id number] Admin: 07/27/18 08:36 Dose: 324 mg Documented by: [id number] Admin: 07/26/18 21:09 Dose: 324 mg Documented by: [id number] Gabapentin (Neurontin) 100 mg PO TID [facility] Stop: 08/25/18 20:59 Last Admin: 07/28/18 08:33 Dose: 100 mg Documented by: [id number] Admin: 07/27/18 21:44 Dose: 100 mg Documented by: [id number] Admin: 07/27/18 13:36 Dose: 100 mg Documented by: [id number] Admin: 07/27/18 08:37 Dose: 100 mg Documented by: [id number] Admin: 07/26/18 21:09 Dose: 100 mg Documented by: [id number] Glimepiride (Amaryl) 2 mg PO QDB [facility] Stop: 08/26/18 07:29 Last Admin: 07/28/18 08:32 Dose: 2 mg Documented by: [id number] Admin: 07/27/18 08:32 Dose: 2 mg Documented by: [id number] Hydromorphone HCl (Dilaudid) 0.5 mg IV Q4H PRN PRN Reason: Pain Stop: 08/09/18 17:50 Last Admin: 07/27/18 19:48 Dose: 0.5 mg Documented by: [id number] Insulin Aspart (Novolog Flexpen) 0 units SC ACHS [facility] Stop: 08/25/18 20:59 Last Admin: 07/28/18 08:35 Dose: 5 units Documented by: [id number] Cosigned by: [id number] Admin: 07/27/18 21:16 Dose: Not Given Documented by: [id number] Cosigned by: [id number] Admin: 07/27/18 18:08 Dose: 2 units Documented by: [id number] Cosigned by: [id number] Admin: 07/27/18 13:31 Dose: 5 units Documented by: [id number] Cosigned by: [id number] Admin: 07/27/18 08:34 Dose: 4 units Documented by: [id number] Cosigned by: [id number] Admin: 07/26/18 21:46 Dose: Not Given Documented by: [id number] Cosigned by: [id number] Losartan Potassium (Cozaar) 100 mg PO QAM [facility] Stop: 08/26/18 08:59 Last Admin: 07/28/18 08:33 Dose: 100 mg Documented by: [id number] Admin: 07/27/18 08:41 Dose: 100 mg Documented by: [id number] Metoprolol Tartrate (Lopressor) 75 mg PO BID [facility] Stop: 08/25/18 20:59 Last Admin: 07/28/18 08:32 Dose: 75 mg Documented by: [id number] Admin: 07/27/18 21:46 Dose: Not Given Documented by: [id number] Admin: 07/27/18 08:41 Dose: 75 mg Documented by: [id number] Admin: 07/26/18 21:11 Dose: Not Given Documented by: [id number] Multivitamins (Multivitamin Tab) 1 tab PO [facility] Stop: 08/26/18 08:59 Last Admin: 07/28/18 08:33 Dose: 1 tab Documented by: [id number] Admin: 07/27/18 08:37 Dose: 1 tab Documented by: [id number] Oxycodone HCl (Roxicodone Immediate Rel) 5 - 10 mg PO Q4H PRN PRN Reason: Pain Stop: 08/09/18 17:50 Last Admin: 07/27/18 16:50 Dose: 10 mg Documented by: [id number] Admin: 07/27/18 12:03 Dose: 5 mg Documented by: [id number] Sennosides (Senokot) 17.2 mg PO [facility] Stop: 08/25/18 20:59 Last Admin: 07/27/18 21:45 Dose: 17.2 mg Documented by: [id number] Admin: 07/26/18 21:09 Dose: 17.2 mg Documented by: [id number] Sertraline HCl (Zoloft) 200 mg PO [facility] Stop: 08/25/18 20:59 Last Admin: 07/27/18 21:43 Dose: 200 mg Documented by: [id number] Admin: 07/26/18 21:08 Dose: 200 mg Documented by: [id number] Sitagliptin Phosphate (Januvia) 100 mg PO [facility] Stop: 08/26/18 08:59 Last Admin: 07/28/18 08:33 Dose: 100 mg Documented by: [id number] Admin: 07/27/18 08:36 Dose: 100 mg Documented by: [id number] (1) Diabetes mellitus, type 2 Diabetes mellitus complication status: without complication Diabetes mellitus mcc insulin use: without mcc use Qualified Code(s): E11.9 - Type 2 diabetes mellitus without complications (2) Depression Active/Remission status: in full remission Depression Type: major depressive disorder Major depression recurrence: unspecified whether recurrent Qualified Code(s): F32.5 - Major depressive disorder, single episode, in full remission (3) Hyperlipidemia Hyperlipidemia type: unspecified Qualified Code(s): E78.5 - Hyperlipidemia, unspecified
[2018-07-28] MEDS: OXYCODONE HCL IR 5 MG TAB (IMMEDIATE RELEASE) PO PRN (12:41)
--- NOTE | 2018-07-29 11:59 | Discharge Summary ---
Date of Service August 04, 2018 Admission HPI Per Admitting Provider This is a 67-year-old female patient of Dr. Lofton's complaining of chronic left knee pain, longstanding, now progressively getting worse. The patient has failed conservative treatment including Tylenol, anti-inflammatories and the use of a cane. The patient has increased pain with weightbearing activities and her pain does interfere with her activities of daily living. Discharge Data Consultations 07/20/18 14:02 Consult Hospitalist Routine 07/26/18 17:51 Consult Case Management - Discharge Planning Routine Procedures Performed Operation Date: 07/26/18 13:30 Actual Procedures p Left Total Knee Arthroplasty(Left) - Dale Lofton MD
--- NOTE | 2018-08-03 10:37 | Discharge Summary ---
Date of Service August 03, 2018 Admission HPI Per Admitting Provider This is a 67-year-old female patient of Dr. Lofton's complaining of chronic left knee pain, longstanding, now progressively getting worse. The patient has failed conservative treatment including Tylenol, anti-inflammatories and the use of a cane. The patient has increased pain with weightbearing activities and her pain does interfere with her activities of daily living. Admission Exam Per Admitting Provider As per admitting history and physical Principal Diagnosis Left Knee Djd Discharge Exam Prevena dressing is clean, dry and intact and has no overt drainage noted. Calves were soft, nontender. Neurovascularly intact. Toes were mobile. There was no erythema or overt swelling noted Discharge Data Allergies Allergy/AdvReac Type Severity Reaction Status Date / Time propoxyphene AdvReac Intermediate Headache Verified 07/26/18 10:35 [From Neto-Josse] Consultations 07/20/18 14:02 Consult Hospitalist Routine 07/26/18 17:51 Consult Case Management - Discharge Planning Routine Procedures Performed Operation Date: 07/26/18 13:30 Actual Procedures p Left Total Knee Arthroplasty(Left) - Dale Lofton MD Ordered Studies 07/26/18 05:00 US - OR guided needle placemen Routine Hospital Course (1) Left knee DJD: Patient was admitted on the above-noted date and had the above-noted surgery performed which he tolerated well. On her first postoperative day, she was sitting up in the bed reading a book. Pain was controlled. She had no complaints. She denies shortness of breath, chest pain, lightheadedness. Dressings were intact, calves soft nontender, neurovascular intact. She was started on physical therapy and outpatient her protocols. She was continued on DVT prophylaxis and pain management. On her second postoperative day, she was having some pain control issues. It was discovered that she was not taking her pain medication on a regular basis. We discussed that she should be taking her oral pain medications every 4 hours as written over she said she would do. She had no other complaints. [facility] A one-time dose of Toradol was also given. She was continued on her protocol and when rechecked later in the afternoon, she was doing much better and pain was controlled. She had been approved for rehab facility. He is otherwise remaining medically stable as well as orthopedically stable and [facility]. Total Time Total Time Spent Total Time Spent (In Minutes): 5 Discharge Plan Discharge Items Patient Disposition: Transfer Inpatient Rehab Fac Reason For Visit: LEFT KNEE OSTEOARTHRITIS Discharge Diagnosis: Left knee osteoarthritis Discharge Goals: Decrease discomfort and Improve function Activity: Per 'Additional Instructions' section Weightbearing: Left weightbearing Weightbearing Comment: as tolerated with walker Non-emergency contact: Surgeon Call non-emergency contact if: your pain is not controlled, your temperature is above 101.5, your wound has increased redness and your wound has increased drainage Follow-up/Referrals: Wili Rodriguez MD [Primary Care Provider] - Diet: Carb Consistent or DM2 Addtl Provider Instructions: ACTIVITY RECOMMENDATIONS: SELF CARE INSTRUCTIONS AFTER TOTAL KNEE REPLACEMENT A. You may need to continue a physical therapy program after discharge from the hospital. There are several options available to you. Your doctor will assist you in selecting the best one for you. 1. An out-patient facility 2 to 3 times a week for therapy or home therapy. 2. Continue working on all exercises taught to you in the hospital. Your goals should be to increase bending of your knee to 90 degrees and beyond and to fully straighten your knee. B. You may progress at your own pace from walking with a walker or crutches to a cane; then to no assistive devices. C. Make walking a part of your daily routine. Be up as much as comfortable with rest periods throughout the day. Rest with leg elevation is very important. Use the ice wrap frequently for the first 3-4 weeks. D. There are no restrictions on activities. You may ride in a car, shop, participate in licensed psychologist manager and all social activities. E. Wear the long elastic stockings (ROHINI hose) 20 hours a day for 2 weeks after surgery. They can be removed several times a day for laundering and for a bath. F. You may shower, no tub baths until cleared by your doctor. SPECIAL CARE INSTRUCTIONS: VERY IMPORTANT TO READ AND REVIEW A. There are a few signs you need to watch for after you are home. Call [facility] if you notice any of the followin. Increased severe knee pain. Some pain is expected especially when you exercise. 2. Increased swelling in your leg or knee; pain or swelling of the calf muscle in either lower leg. 3. Any fluid drainage from the incision. 4. Shortness of breath or chest pain. B. Please call [facility] at if you have any concerns or questions about your operation or recovery. The doctor or his nurse will return your call promptly. C. You must take antibiotics before dental work, bladder, bowel or other surgery. Your doctor will provide you with a permanent care to carry describing this precaution. IMPORTANT: * REMEMBER TO TAKE ASPIRIN, 81 MG, TWICE DAILY FOR 4 WEEKS UNLESS OTHERWISE DIRECTED. THIS IS YOUR BLOOD THINNER. * HIGH RISK PATIENTS MAY BE PRESCRIBED A STRONGER BLOOD THINNER. THIS WILL BE PROVIDED AT DISCHARGE. * CALL IF INCREASED PAIN, REDNESS, DRAINAGE OR FEVER GREATER THAT 101. * WEAR ROHINI HOSE 20 HOURS PER DAY FOR 2 WEEKS. * Prevena- This is a large suction dressing covering your incision. This will help pull any excess drainage from the wound and allow your incision to heal properly. You may shower with this if you can keep the unit outside of the shower. If any bleeding or leakage is noted please call your doctor's office. This will remain on your incision for 7 days and then should be removed. This can be done yourself or by the home nursing staff if applicable. The entire unit is disposable once removed. Once removed, keep incision clean and dry. If redness or drainage is noted, please call your surgeon. . FOLLOW UP VISIT: If appointment is not already scheduled: Please call [facility] to make a follow-up appointment for 2 weeks after your surgery at . Prescriptions: New aspirin [Ecotrin Low Strength] 81 mg Tablet,Delayed Release (Dr/Ec) 81 mg PO BID 30 Days Qty: 60 RF: 0 acetaminophen [Pain Reliever] 500 mg Tablet 1,000 mg PO Q8 14 Days Qty: 84 RF: 0 oxycodone 5 mg Tablet 5 mg PO Q4H PRN (Reason: pain) Qty: 30 RF: 0 docusate sodium 100 mg Capsule 100 mg PO BID Qty: 20 RF: 0 cefadroxil 500 mg capsule 500 mg PO BID Qty: 14 RF: 0 Continued glimepiride 2 mg Tablet 2 mg PO BID RF: 0 diphenhydramine HCl 25 mg Tablet 25 mg PO HS PRN (Reason: allergies) RF: 0 atorvastatin 40 mg Tablet 40 mg PO HS RF: 0 sertraline 100 mg Tablet 200 mg PO HS RF: 0 metformin 1,000 mg Tablet 1,000 mg PO BID RF: 0 metoprolol tartrate 50 mg Tablet 1.5 tab PO BID RF: 0 hydrochlorothiazide 25 mg Tablet 0.5 tab PO QAM RF: 0 gabapentin 100 mg Capsule 100 mg PO TID RF: 0 losartan 100 mg Tablet 100 mg PO QAM RF: 0 Januvia 100 mg Tablet 100 mg PO QAM RF: 0 Discontinued meloxicam 15 mg Tablet 15 mg PO QDL RF: 0 aspirin [Aspirin Low Dose] 81 mg Tablet,Delayed Release (Dr/Ec) 81 mg PO BID RF: 0 acetaminophen [Acetaminophen Extra Strength] 500 mg Tablet 500 mg PO Q6H PRN (Reason: Pain) RF: 0 Stand-Alone Forms: [facility] Discharge Orders: Discharge Order (Routine); Ordered 07/28/18 Ordered By: Jesús Tatum Skilled Items Patient informed of condition?: Yes DNR: No Discharge Level of Care: Acute rehab Communicable Disease: No Discharge Prognosis: Stable Admission Data Admit Date/Time: 07/26/18 16:53 Attending Provider: Dale Lofton Admit Provider: Dale Lofton Primary Care Provider: Wili Rodriguez Other Providers: Rafa Esparza. Service: Surgical Services Other Interventions: Discharge Summary Assessment (RN) Last Done: 07/28/18 14:18 DC Date/Time DO NOT enter until pt leaves facility: 07/28/18 15:13 Supervising Physician Co-Signing Physician Notes Dr Lofton
== END 2018-07-28 15:13 | DRG 470 ==
LOC: ASU 09:56 → 3E 16:53